=== PATIENT | female | born 1945 | race Caucasian/White ===

== ENCOUNTER 2018-06-28 10:47 | Inpatient (IN) | payer OTHER ==
[~2018-06-28] VITALS: Ht 162.6 cm; Wt 58.0 kg
[~2018-06-28 10:47] MED LIST: ACET-1757 PO; DOCU100C33 PO; ENOX40SY4 SQ; EYE PO; HYDR-3237 PO; NICO-485 TD; ONDA4TAB12 IV; POLY17PO5 PO; POTA10TA11 PO
[2018-06-28 11:09] LABS: BASOPHILS # (AUTO) 0.09 x10^3/uL (0-0.1); BASOPHILS % (AUTO) 1 % (0-1); EOSINOPHILS # (AUTO) 0.13 x10^3/uL (0-0.4); EOSINOPHILS % (AUTO) 2 % (1-7); LYMPHOCYTES # (AUTO) 1.81 x10^3/uL (1-3.4); LYMPHOCYTES % (AUTO) 27 % (22-44); MD NO; MEAN CORPUSCULAR HEMOGLOBIN 31.1 pg (27.0-34.8); MEAN CORPUSCULAR HGB CONC 34.5 g/dL (32.4-35.8); MEAN CORPUSCULAR VOLUME 90.2 fL (80-100); MEAN PLATELET VOLUME 8.1 fL (7.4-10.4); MONOCYTES % (AUTO) 4 % (2-9); NEUTROPHILS # (AUTO) 4.46 x10^3/uL (1.8-6.8); NEUTROPHILS % (AUTO) 66 % (42-75); PLATELET COUNT 278 x10^3/uL (130-400); RED BLOOD COUNT 4.83 x10^6/uL (3.82-5.3)
--- NOTE | 2018-06-28 11:15 | NUR ---
[facility]IB FAMILY PT STARTED TO HAVE LIMITED ABILIYT TO [place] AT APPROX 830 TODAY PT TO ED AT APPROX 1055 REMAINS UNABLE TO SPEAK WORDS SHE FOLLOWS COMMANDS AND HAS COMPLETED EQUAL RO ERP TO THE BS ON ARRIVAL IV STARTED AND PT TO CT AT APPROX [address] CONDITION AND SPEACH UNCHANGED ON ARRIVAL PIERCE TO ED PT STARTED TO FORM WORDS
[2018-06-28 11:20] LABS: INTERNATIONAL NORMALIZED RATIO 0.95 (0.93-1.1); PROTHROMBIN TIME 10.1 Seconds (9.6-11.5)
[2018-06-28] MEDS ORDERED: OMNIPAQUE 350 MG/ML, 100ML BOTTLE ONE (11:28)
[2018-06-28] MEDS ORDERED: ALTEPLASE 0 MG in SYRINGE 1 EA IV ONE (11:30)
[2018-06-28] MEDS ORDERED: PLEASE ENTER HEIGHT AND WEIGHT MC SCH (11:30)
[2018-06-28] MEDS ORDERED: ALTEPLASE 0 MG in BAG 1 EACH IV ONE (11:30)
--- NOTE | 2018-06-28 11:34 | NUR ---
PT AT THIS TIME STARTING TO FORM COMPLETED WORDS ABLE TO IDENTIFY FRIEND BY CORRECT NAME REMAINS ANXIOUS CONTINUING TO MONITOR NO TPA AT THIS TIME PER ERP
--- NOTE | 2018-06-28 12:00 | NUR ---
REMAINS ANXIOUS DAILY SMOKING AND ETOH
--- NOTE | 2018-06-28 12:04 | NUR ---
RECEIVED REPORT FROM PRITESH PINTO.
[2018-06-28] MEDS ORDERED: ASPIRIN 81 MG TABLET CHEW ONE (12:06)
[2018-06-28] MEDS ORDERED: ASPIRIN 81 MG TABLET CHEW PO ONE (13:00)
--- NOTE | 2018-06-28 13:10 | NUR ---
RECEIVED REPORT FROM FLAKITO Bhat RN. PT RESTING IN BED IN NAD. PT ABLE TO VERBALIZE SHE IS NOT IN ANY PAIN.
--- NOTE | 2018-06-28 14:18 | NUR ---
PT MOVED FROM TRAUMA 3 TO ROOM 18. HOSPITAL BED REQUESTED.
--- NOTE | 2018-06-28 14:25 | NUR ---
DAUGHTER AT BEDSIDE. PT AT TIMES ABLE TO SPEAK CLEARLY.
--- NOTE | 2018-06-28 14:37 | NUR ---
IV ON LEFT REPLACED FOR IV IN RIGHT HAND. PT HAS HX OF LEFT MASECTOMY WITH LYMPH NODE REMOVAL.
--- NOTE | 2018-06-28 15:07 | NUR ---
DR. GODDARD AT BEDSIDE FOR ADMIT. WAITING FOR ORDERS.
--- NOTE | 2018-06-28 15:24 | NUR ---
Report called to floor. VSS. Pt denies AMARAL and no change in neuro status.
[2018-06-28] MEDS ORDERED: ONDANSETRON 2MG/ML, 2ML IVPush PRN (15:30)
[2018-06-28] MEDS ORDERED: ACETAMINOPHEN 325 MG TABLET PO PRN (15:30)
[2018-06-28 16:04] VITALS: BP 139/65
[2018-06-28 18:08] VITALS: BP 137/83
[2018-06-28] MEDS: NICOTINE 21 MG/24 HR PATCH.TD24 TD SCH (18:13)
[2018-06-28] MEDS: ENOXAPARIN 40 MG/0.4 ML SQ SCH (18:13)
[2018-06-28 20:03] VITALS: BP 124/67
[2018-06-28] MEDS ORDERED: ATORVASTATIN 40 MG TABLET PO SCH (21:00)
[2018-06-29 01:28] VITALS: BP 110/60
[2018-06-29 04:10] LABS: CHOL/HDL RATIO 2.3
[2018-06-29] MEDS ORDERED: ASPIRIN 81 MG TABLET EC PO SCH (06:00)
[2018-06-29 07:00] VITALS: BP 111/69
[2018-06-29 08:43] LABS: MICROSCOPIC NOT IND
[2018-06-29 08:48] LABS: CULTURE INDICATED? NO
[2018-06-29 13:18] VITALS: BP 106/69
[2018-06-29] MEDS ORDERED: ASPI81TA45 PO (17:49)
[2018-06-29] MEDS ORDERED: ATOR40TA78 PO (17:49)
[2018-06-29] MEDS ORDERED: NICO-487 TD (17:49)
[2018-06-29] MEDS: ENOXAPARIN 40 MG/0.4 ML SQ SCH (18:00)
[2018-06-29] MEDS: NICOTINE 21 MG/24 HR PATCH.TD24 TD SCH (18:11)
== END 2018-06-29 19:01 | disposition home health service (06) | DRG 64 ==
LOC: ED 12:44 → EDIP 12:45 → 4WST 15:44
PROVIDERS: ADMIT Hospitalist; ATTEND Internal Medicine
DX: I63.512 Cerebral infarction due to unspecified occlusion or stenosis of left middle cerebral artery (principal); J96.21 Acute and chronic respiratory failure with hypoxia; R47.01 Aphasia; I27.20 Pulmonary hypertension, unspecified; Z80.0 Family history of malignant neoplasm of digestive organs; Z85.3 Personal history of malignant neoplasm of breast; Z87.891 Personal history of nicotine dependence; Z90.12 Acquired absence of left breast and nipple; Z98.84 Bariatric surgery status; Z88.0 Allergy status to penicillin
CPT/HCPCS: 36415; 70450; 70496; 70498; 70551; 71045; 80047; 80061; 81003; 82962; 85025; 85610; 85730; 93005; 93306; 93880; G0378; J1650; Q9967